=== PATIENT | female | born 2000 | race African-American/Black ===

== ENCOUNTER 2024-08-22 17:27 | Emergency (ER) | payer OTHER ==
--- NOTE | 2024-08-22 19:19 | RAD REPORT ---
EXAMINATION: XR LEFT ELBOW CLINICAL INDICATION: Female, 24 years old. PAIN TECHNIQUE: Multiple views of the left elbow were obtained. COMPARISON: No prior exam. FINDINGS: No evidence of fracture or dislocation. Normal alignment. No joint effusion. Soft tissues a re unremarkable.
--- NOTE | 2024-08-22 19:40 | ER ---
Nurse's Notes [facility] Name: Javad Wen Age: 24 yrs Sex: Female : 2000 Arrival Date: 08/22/2024 Time: 17:27 Bed 10 Private MD: Diagnosis: Contusion of left elbow Presentation: 08/22 18:12 Chief complaint: Patient states: WHILE PUTTING BABY IN STROLLER, SLIPPED IN THE MUD AND dd2 AND LANDED ON LT ARM. Coronavirus screen: At this time, the client does not indicate any symptoms associated with coronavirus-19. Ebola Screen: No symptoms or risks identified at this time. Initial Sepsis Screen: Does the patient meet any 2 criteria? No. Patient's initial sepsis screen is negative. Does the patient have a suspected source of infection? No. Patient's initial sepsis screen is negative. Risk Assessment: Do you want to hurt yourself or someone else? Patient reports no desire to harm self or others. Onset of symptoms was August 22, 2024. 18:12 Method Of Arrival: Ambulatory dd2 18:12 Acuity: CHRISTOPHER 4 dd2 19:59 Care prior to arrival: None. Mechanism of Injury: Fall from standing position. Trauma cp4 event details: Injury occurred in the [facility]. Triage Assessment: 18:15 General: Appears in no apparent distress. uncomfortable, Behavior is calm, cooperative, dd2 appropriate for age. Pain: Complains of pain in anterior aspect of left shoulder and left elbow. 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 - Infectious Disease History:: Denies. - Immunization history: Last tetanus immunization: - up to date. - Social history:: Smoking status: Patient denies any tobacco usage or history of. Screenin:11 [facility] ED Fall Risk Assessment (Adult) History of falling in the last 3 months, cp4 including since admission Yes- single mechanical fall (1 pt) Confusion or Disorientation No (0 pts) Intoxicated or Sedated No (0 pts) Impaired Gait No (0 pts) Mobility Assist Device Used No (0 pt) Altered Elimination No (0 pt) Score/Fall Risk Level 0 - 2 = Low Risk Oriented to surroundings, Maintained a safe environment, Assessed \T\ reinforced patient's understanding of fall precautions, Hourly rounding (assess needs \T\ fall precautionary measures) done. Abuse screen: Denies threats or abuse. Denies injuries from another. Nutritional screening: No deficits noted. Tuberculosis screening: No symptoms or risk factors identified. Never had TB. Primary Survey: 19:57 NO uncontrolled hemorrhage observed. A: The client is awake and alert. The airway is cp4 patent. Breathing/Chest: Spontaneous respiratory effort, equal unlabored respirations, breath sounds clear bilaterally, regular pattern, symmetrical chest rise and fall. Circulation: No external hemorrhage present. Regular and strong central pulse, skin warm/dry/normal color. Disability Pupils are equal, round, reactive to light and accommodation. Client is alert. Exposure/Environment: A warming method has been applied: A warm blanket has been provided to the patient. Reassessment Alertness and Airway: Awake and alert. The airway is patent. Breathing: Spontaneous respiratory effort, equal unlabored respirations, breath sounds clear bilaterally, regular pattern with symmetrical chest rise and fall. Circulation: No external hemorrhage noted. Regular and strong central pulse, skin warm/dry/normal color. Disability: Pupils Pupils are equal, round, reactive to light and accomodation. Alert. Assessment: 19:09 General: Appears in no apparent distress. uncomfortable, Behavior is calm, cooperative, cp4 appropriate for age. Pain: Complains of pain in left arm Pain does not radiate. Pain currently is 6 out of 10 on a pain scale. Neuro: Level of Consciousness is awake, alert, obeys commands, Oriented to person, place, time, situation. Cardiovascular: Patient's skin is warm and dry. Respiratory: Airway is patent Respiratory effort is even, unlabored. GI: No signs and/or symptoms were reported involving the gastrointestinal system. : No signs and/or symptoms were reported regarding the genitourinary system. EENT: No signs and/or symptoms were reported regarding the EENT system. Derm: No signs and/or symptoms reported regarding the dermatologic system. Musculoskeletal: Reports pain in left arm. Vital Signs: 18:15 BP 116 / 70; Pulse 73; Resp 16; Temp 98.2; Pulse Ox 100% on R/A; Weight 58.97 kg; dd2 Height 5 ft. 7 in. ; Pain 6/10; 18:15 Body Mass Index 20.36 (58.97 kg, 170.18 cm) dd2 18:15 Pain Scale: Adult dd2 Giovani Coma Score: 19:57 Eye Response: spontaneous(4). Motor Response: obeys commands(6). Verbal Response: cp4 oriented(5). Total: 15. Trauma Score (Adult): 19:57 Eye Response: spontaneous(1); Verbal Response: oriented(1); Motor Response: obeys cp4 commands(2); Systolic BP: > 89 mm Hg(4); Respiratory Rate: 10 to 29 per min(4); [place] Score: 15; Trauma Score: 12 ED Course: 17:34 Patient arrived in ED. im 17:34 Abigail Wen PA-C is PHCP. sb4 17:34 Jorge Hernandez DO is Attending Physician. sb4 18:15 Triage completed. dd2 18:15 Arm band placed on right wrist. dd2 18:59 Lori Rodriguez is Primary Nurse. cp4 19:11 Bed in low position. Call light in reach. Side rails up X2. cp4 19:11 Patient did not have IV access during this emergency room visit. cp4 19:16 Elbow Left 3 View XRAY In Process Unspecified. EDMS 19:57 Patient maintains SpO2 saturation greater than 95% on room air. cp4 19:59 Provided Education on: elbow contusion. cp4 19:59 No provider procedures requiring assistance completed. cp4 20:00 Thermoregulation: warm blanket given to patient. cp4 Administered Medications: No medications were administered Medication: 19:09 VIS not applicable for this client. cp4 Intake: 19:57 PO: 0ml; Total: 0ml. cp4 Output: 19:57 Urine: 0ml; Total: 0ml. cp4 Outcome: 19:39 Discharge ordered by MD. sb4 19:58 Discharged to home ambulatory, cp4 19:58 Condition: stable 19:58 Discharge instructions given to patient, family, Instructed on discharge instructions, follow up and referral plans. 19:58 Patient's length of stay in the Emergency Department was greater than 2 hours. radiologyPatient's length of stay extended due to 20:00 Patient left the ED. cp4 Signatures: Dispatcher [employer] Abigail Simon PA-C PA-C sb4 Aspen Navarro Christina cp4 MIGUEL GUTHRIE RN RN dd2
--- NOTE | 2024-08-22 19:40 | EDPHYS ---
Physician Documentation [facility] Name: Javad Wen Age: 24 yrs Sex: Female : 2000 Arrival Date: 08/22/2024 Time: 17:27 Bed 10 Private MD: ED Physician Jorge Hernandez HPI: 08/22 19:09 This 24 yrs old Female presents to ER via Ambulatory with complaints of Fall Injury. sb4 19:09 Was holding her baby on her right hip when she slipped in the dirt and fell, dropping sb4 the baby, landing on her right arm. Complaining of pain in her right elbow that radiates up to her right shoulder. No other injuries. Has full ROM, just pain. 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 - Infectious Disease History:: Denies. - Immunization history: Last tetanus immunization: - up to date. - Social history:: Smoking status: Patient denies any tobacco usage or history of. ROS: 19:10 Constitutional: Negative for fever, chills, and weight loss, sb4 19:10 MS/extremity: Positive for injury or acute deformity, pain, of the left elbow, 19:10 All other systems are negative, Exam: 19:10 Constitutional: This is a well developed, well nourished patient who is awake, alert, sb4 and in no acute distress. Head/Face: Normocephalic, atraumatic. Eyes: Extra-ocular motions intact. Periorbital areas with no swelling, redness, or edema. ENT: Mucous membranes moist. Respiratory: No increased work of breathing, no retractions or nasal flaring. Skin: Warm, dry with normal turgor. Normal color with no rashes, no lesions, and no evidence of cellulitis. MS/ Extremity: Pulses equal, no cyanosis. Neurovascular intact. Full, normal range of motion. Neuro: Awake and alert, GCS 15, oriented to person, place, time, and situation. Motor strength 5/5 in all extremities. Sensory grossly intact. Vital Signs: 18:15 BP 116 / 70; Pulse 73; Resp 16; Temp 98.2; Pulse Ox 100% on R/A; Weight 58.97 kg; dd2 Height 5 ft. 7 in. ; Pain 6/10; 18:15 Body Mass Index 20.36 (58.97 kg, 170.18 cm) dd2 18:15 Pain Scale: Adult dd2 [place] Coma Score: 19:57 Eye Response: spontaneous(4). Motor Response: obeys commands(6). Verbal Response: cp4 oriented(5). Total: 15. Trauma Score (Adult): 19:57 Eye Response: spontaneous(1); Verbal Response: oriented(1); Motor Response: obeys cp4 commands(2); Systolic BP: > 89 mm Hg(4); Respiratory Rate: 10 to 29 per min(4); Giovani Score: 15; Trauma Score: 12 MDM: 17:50 Medical Screening Exam initiated sb4 19:42 Differential diagnosis: contusion, fracture, sprain, strain. Data reviewed: vital sb4 signs, nurses notes, radiologic studies, and as a result, I will discharge patient. Counseling: I had a detailed discussion with the patient and/or guardian regarding the historical points, exam findings, and any diagnostic results supporting the discharge/admit diagnosis, radiology results, the need for outpatient follow up, for definitive care, to return to the emergency department if symptoms worsen or persist or if there are any questions or concerns that arise at home. 08/22 18:16 Order name: Elbow Left 3 View XRAY; Complete Time: 19:21 sb4 Administered Medications: No medications were administered Disposition: 19:17 I was immediately available on-site in the Emergency Department for consultation in the ms3 care of the patient. Disposition Summary: 08/22/24 19:39 Discharge Ordered Notes: Location: Home sb4 Problem: new sb4 Symptoms: have improved sb4 Condition: Stable sb4 Diagnosis - Contusion of left elbow sb4 Followup: sb4 - With: Private Physician - When: As needed - Reason: Recheck today's complaints, Re-evaluation by your physician Discharge Instructions: - Discharge Summary Sheet sb4 - Elbow Contusion, [id number] sb4 Forms: - Patient Portal Instructions sb4 - Leadership Thank You Letter sb4 Signatures: Dispatcher [employer] EDJorge Mendoza DO DO ms3 Abigail Wen PA-C PA-C sb4 Lori Rodriguez cp4 MIGUEL GUTHRIE, RN RN dd2
[2024-08-22 20:15] VITALS: BP 116/70; TEMP 98.2; O2SAT 100
== END 2024-08-22 20:00 | disposition home or self-care (01) ==
LOC: ER 17:27
DX: S50.02XA Contusion of left elbow, initial encounter (principal)
CPT/HCPCS: 99282